=== PATIENT | male | born 1955 | race Caucasian/White ===

== ENCOUNTER → 2024-06-30 09:55 | Outpatient (REF) | payer OTHER, SELFPAY | LOC: HWRAD 09:55 | PROVIDERS: ATTENDING PHYSICIAN Surgery; FAMILY PHYSICIAN Family Medicine | DX: N20.0 Calculus of kidney (principal) | CPT/HCPCS: 76770 ==

== ENCOUNTER → 2025-03-31 12:22 | Outpatient (REF) | payer OTHER, SELFPAY | LOC: HWRAD 12:22 | PROVIDERS: ATTENDING PHYSICIAN Surgery; FAMILY PHYSICIAN Family Medicine | DX: N20.0 Calculus of kidney (principal) | CPT/HCPCS: 76775 ==